=== PATIENT | male | born 1945 | race Caucasian/White ===

== ENCOUNTER 2017-12-02 10:59 | Inpatient (IN) | payer OTHER ==
[~2017-12-02] VITALS: Ht 188 cm; Wt 98.7 kg
[2017-12-02] VITALS (7 sets, daily range): BP systolic 149–153; BP diastolic 73–76; PULSE 65–69; TEMP 36.9–37.2; O2SAT 93–95; Ht 188 cm; Wt 98.7 kg
[2017-12-02] MEDS ORDERED: ALBUTEROL HFA 8 GM INHALER INH ONE (11:15)
--- NOTE | 2017-12-02 11:32 | DIAGNOSTIC IMAGING REPORT ---
CHEST ONE VIEW PORTABLE HISTORY: 72 years-old Male EVALUATE RESPIRATORY DISTRESS.DYSPNEA acute respiratory distress with possible pneumonia COMPARISON: None available TECHNIQUE: Portable AP view of the chest FINDINGS: Cardiomediastinal and hilar silhouettes are within normal limits. There is no pneumothorax or pleural effusion. Moderate right hemidiaphragmatic elevation with linear subsegmental bibasilar opacities. No overt pulmonary edema or lobar airspace consolidation identified. The bones of the chest appear grossly intact. IMPRESSION: 1. No acute process. 2. Right hemidiaphragmatic elevation with linear subsegmental bibasilar opacities suggesting atelectasis. The above report was generated using voice recognition software. It may contain grammatical, syntax or spelling errors. Electronically signed by: Ankush Mims M.D. 12/02/2017 11:31 AM Dictated Date/Time: 12/02/2017 11:28 AM
[2017-12-02 12:12] LABS: BASO % 0.2 %; BASO ABS # 0.02 K/uL (0-0.2); EOS % 0.9 %; EOS ABS # 0.08 K/uL (0-0.5); HEMATOCRIT 40.8 % (42-52); HEMOGLOBIN 14.4 g/dL (14.0-18.0); IG# 0.03 K/uL (0.00-0.02); LYMPH % 11.9 %; LYMPH ABS # 1.12 K/uL (1.2-3.4); MEAN CELL VOLUME 88.5 fL (80-100); MEAN CORPUSCULAR HEMOGLOBIN 31.2 pg (25-34); MEAN CORPUSCULAR HGB CONC 35.3 g/dl (32-36); MEAN PLATELET VOLUME 10.2 fL (7.4-10.4); MONO % 8.9 %; MONO ABS # 0.84 K/uL (0.11-0.59); NEUT % 77.8 %; PLATELET COUNT 161 K/uL (130-400); RED CELL DISTRIBUTION WIDTH CV 13.3 % (11.5-14.5); RED CELL DISTRIBUTION WIDTH SD 42.8 fL (36.4-46.3); WHITE BLOOD COUNT 9.39 K/uL (4.8-10.8)
[2017-12-02] MEDS ORDERED: SODIUM CHLORIDE 0.9% 1000ML 1,000 ML IV STA (12:15)
[2017-12-02] MEDS ORDERED: PIPERACILLIN/TAZOBACTAM 4.5 GM/100ML D5W IV STA (12:15)
[2017-12-02 12:37] LABS: ALBUMIN 3.6 gm/dl (3.4-5.0); CALCIUM 8.7 mg/dl (8.5-10.1); CREATININE 0.92 mg/dl (0.60-1.40); POTASSIUM 3.8 mmol/L (3.5-5.1)
[2017-12-02 13:24] LABS: INFLUENZA B ANTIGEN Neg for Influ B (NEG)
[2017-12-02] MEDS ORDERED: ACETAMINOPHEN 325 MG TAB PO SCH (13:45)
[2017-12-02] MEDS ORDERED: ALBUT/IPRATROP 3MG/0.5MG NEB 3 ML VIAL INH PRN (13:45)
--- NOTE | 2017-12-02 14:06 | History and Physical ---
History & Physical Date & Time of Service: Dec 02, 2017 at 13:16 Chief Complaint: Pneumonia Primary Care Physician: Hung Shepherd M.D. History of Present Illness Mr. Serna was in his pcp office today for cough when he had a syncopal episode witnessed by the staff. He does not remember losing consciousness though he does remember feeling dizzy, he was on the exam table so did not fall and felt better once laying back. Per his pcp office, patient became bradycardic during this episode. No chest pain or sob. He has had a cough since the weekend. No fevers, chills or muscle aches. His was ill with a URI last week and was given Augmentin, she was negative for flu at that time. No change in appetite. ROS Constitutional: no chills, aches, sweats or fever Respiratory: See HPI Cardiac: no chest pain, palpitations, edema, GI: no abdominal pain, nausea, vomiting, diarrhea or constipation : no dysuria or hesitancy Extremities: no joint pain or weakness Skin: no rash All other systems reviewed and negative Pmhx: chronic lower back pain Family History Mother of age at 96 Father of cerebral hemorrhage His three siblings are but he is not sure what medical history they had. Social History Smoking Status: Current Every Day Smoker (daily pipe ) Smokeless Tobacco Use: No Alcohol Use: beer a day Marital Status: Housing status: lives with significant other Occupational Status: retired (retail) Immunizations History of Influenza Vaccine: No History of Pneumococcal: No Allergies Coded Allergies: No Known Allergies (Unverified , 12/02/17) Home Medications No Active Prescriptions or Reported Meds Physical Exam Vital Signs Date Time Temp Pulse Resp B/P (MAP) Pulse Ox O2 Delivery O2 Flow Rate FiO2 12/02/17 12:26 63 15 145/67 95 Room Air 12/02/17 11:36 94 Room Air 12/02/17 11:30 76 12/02/17 11:02 36.9 74 20 144/72 95 Room Air General: no distress Eyes: normal inspection, PERLL Respiratory: chest non tender, left base course with expiratory wheezing, other moffett diminished, no respiratory distress, no accessory muscle use Cardiac: regular rate and rhythm, no rub or gallop, no murmur, no edema, no jvd GI/: active bowel sounds, no abd pain or tenderness, soft, non distended Extremities: normal range of motion, normal strength, non tender Neuro/Psych: alert and oriented x 3, normal mood and affect Skin: normal color, dry Diagnostics Laboratory Results Results Past 24 Hours Test 12/02/17 11:25 12/02/17 11:46 12/02/17 11:47 Range/Units White Blood Count 9.39 4.8-10.8 K/uL Red Blood Count 4.61 4.7-6.1 M/uL Hemoglobin 14.4 14.0-18.0 g/dL Hematocrit 40.8 42-52 % Mean Corpuscular Volume 88.5 80-100 fL Mean Corpuscular Hemoglobin 31.2 25-34 pg Mean Corpuscular Hemoglobin Concent 35.3 32-36 g/dl Platelet Count 161 130-400 K/uL Mean Platelet Volume 10.2 7.4-10.4 fL Neutrophils (%) (Auto) 77.8 % Lymphocytes (%) (Auto) 11.9 % Monocytes (%) (Auto) 8.9 % Eosinophils (%) (Auto) 0.9 % Basophils (%) (Auto) 0.2 % Neutrophils # (Auto) 7.30 1.4-6.5 K/uL Lymphocytes # (Auto) 1.12 1.2-3.4 K/uL Monocytes # (Auto) 0.84 0.11-0.59 K/uL Eosinophils # (Auto) 0.08 0-0.5 K/uL Basophils # (Auto) 0.02 0-0.2 K/uL RDW Standard Deviation 42.8 36.4-46.3 fL RDW Coefficient of Variation 13.3 11.5-14.5 % Immature Granulocyte % (Auto) 0.3 % Immature Granulocyte # (Auto) 0.03 0.00-0.02 K/uL Sodium Level 130 136-145 mmol/L Potassium Level 3.8 3.5-5.1 mmol/L Chloride Level 96 98-107 mmol/L Carbon Dioxide Level 25 21-32 mmol/L Anion Gap 9.0 3-11 mmol/L Blood Urea Nitrogen 12 7-18 mg/dl Creatinine 0.92 0.60-1.40 mg/dl Est Creatinine Clear Calc Drug Dose 93.1 ml/min Estimated GFR () 96.6 Estimated GFR (Non- 83.4 BUN/Creatinine Ratio 12.9 10-20 Random Glucose 143 70-99 mg/dl Calcium Level 8.7 8.5-10.1 mg/dl Total Bilirubin 0.8 0.2-1 mg/dl Aspartate Amino Transf (AST/SGOT) 19 15-37 U/L Alanine Aminotransferase (ALT/SGPT) 27 12-78 U/L Alkaline Phosphatase 66 45-117 U/L Total Protein 7.0 6.4-8.2 gm/dl Albumin 3.6 3.4-5.0 gm/dl Globulin 3.4 2.5-4.0 gm/dl Albumin/Globulin Ratio 1.1 0.9-2 Bedside Troponin I 0.050 0-0.045 ng/ml Bedside Lactic Acid Venous 2.21 0.90-1.70 mmol/L Microbiology Results 12/02/17 Blood Culture, Received Pending 12/02/17 Blood Culture, Received Pending Diagnostic Radiology CHEST ONE VIEW PORTABLE HISTORY: 72 years-old Male EVALUATE RESPIRATORY DISTRESS.DYSPNEA acute respiratory distress with possible pneumonia COMPARISON: None available TECHNIQUE: Portable AP view of the chest FINDINGS: Cardiomediastinal and hilar silhouettes are within normal limits. There is no pneumothorax or pleural effusion. Moderate right hemidiaphragmatic elevation with linear subsegmental bibasilar opacities. No overt pulmonary edema or lobar airspace consolidation identified. The bones of the chest appear grossly intact. IMPRESSION: 1. No acute process. 2. Right hemidiaphragmatic elevation with linear subsegmental bibasilar opacities suggesting atelectasis. Impression Assessment and Plan Mr. Serna is a 72 year old man here for pneumonia and syncope Community Acquired Pneumonia/syncope/symptomatic bradycardia - admit tele - blood cultures pending - Patient's lactic acid was 2.2 - NSS @ 150 ml/hr - IV Doxy and Rocephin - CXR did not show pneumonia however his clinical presentation is consistent with pneumonia, repeat cxr am - Echo - Initial troponin 0.05 - continue to trend - Rapid influenza negative - pcr pending - prn nebs - EKG with chest pain - Patient was bradycardic in his pcp office though he has not been bradycardic since arrival to ED - consult cardiology Hyponatremia - Na 130 - NSS as above - recheck prp in am Chronic back pain - prn acetaminophen DNR DVT proph - enoxaprin, SCDs I personally interviewed and examined the patient. I agree with history of present illness and physical exam mentioned above, I also performed my own history taking and examination. Past medical history and review of system has been obtained by myself I reviewed all pertinent labs and studies Reviewed current medications I discussed and formulated of the assessment and plan mentioned above. Please refer to the Summary mentioned below. 72 years old man who had 5 days history of shortness of breath and mild cough, presented to his primary care physician today for evaluation. Patient suddenly while he is there developed presyncope and was found to have bradycardia, exact pulse rate is unknown at this point but they laid him down on bed and it is unclear if he passed out or not but he was told that he was out for a very brief. This time., At this time his symptoms for upper respiratory tract could be early pneumonia as his chest x-ray was negative but he was dehydrated upon arrival. His presyncope could be symptomatic bradycardia versus vasovagal attack. Admit patient for IV antibiotics, repeat chest x-ray in a.m., consult senior medical writer for symptomatic bradycardia. Order 2D echo. General Appearance: not in acute distress Eyes: normal Sclerae, extraocular muscle intact ENT: hearing grossly normal Neck: supple Respiratory/Chest: Decreased air entry bilateral , mild respiratory distress, bilateral scattered rhonchi no accessory muscle use Cardiovascular: regular rate, rhythm, no murmur Abdomen: non tender, soft, no masses Extremities: no edema Neurologic/Psychiatric: Awake alert oriented times place and person moves all extremities sensation intact cranial nerves II-12 appear to be intact Skin: normal color, warm/dry, no rash Dara Cook MD, [facility] Advanced Directives Existing Advance Directive: No Existing Living Will: Yes Existing Power of Circuit Rider: No Existing Health Care Proxy: No Resuscitation Status DNR VTE Prophylaxis Will order VTE Prophylaxis: Yes Social Service Consult None Apply
--- NOTE | 2017-12-02 16:16 | ECHOCARDIOGRAM REPORT ---
*NOTICE TO RECEIVING [employer] This information is strictly Confidential and protected under [place] law. [place] law prohibits you from making any further disclosure of this information unless further disclosure is expressly permitted by the written consent of the person to whom it pertains or is authorized by law. A general authorization for the release of medical or other information is not sufficient for this purpose. Hospital accepts no responsibility if the information is made available to any other person, INCLUDING THE PATIENT. Interpretation Summary * Name: ALLIE CELESTE Study Date: 12/02/2017 02:32 PM BP: 167/80 mmHg * Patient Location: [facility] HR: 69 * : 1945 (M/d/yyyy) Gender: Male Height: 74 in * Age: 72 yrs Ethnicity: [place] Weight: 220 lb * Ordering Physician: Elham Veronica * Referring Physician: Self, Referred * Performed By: Murphy Ervin RCS * * Reason For Study: Syncope * BSA: 2.3 m2 * -- Conclusions -- * Left ventricular systolic function is normal. * Mild aortic regurgitation. * Mild valvular aortic stenosis. * Right ventricular systolic pressure is elevated at 30-40mmHg. * Borderline aortic root dilatation. Procedure Details * A complete two-dimensional transthoracic echocardiogram was performed (2D, M-mode, Doppler and color flow Doppler). Left Ventricle * The left ventricle is normal in size. * There is normal left ventricular wall thickness. * Ejection Fraction = 60-65%. * Left ventricular systolic function is normal. * The left ventricular wall motion is normal. Right Ventricle * The right ventricle is normal in size and function. * The right ventricular systolic function is normal as assessed by tricuspid annular plane systolic excursion (TAPSE) (normal >1.5 cm). Atria * The left atrial size is normal. * Right atrial size is normal. Mitral Valve * The mitral valve leaflets appear normal. There is no evidence of stenosis, fluttering, or prolapse. * There is trace mitral regurgitation. Tricuspid Valve * The tricuspid valve is not well visualized, but is grossly normal. * There is mild tricuspid regurgitation. * Right ventricular systolic pressure is elevated at 30-40mmHg. Aortic Valve * The aortic valve is trileaflet. * Mild valvular aortic stenosis. * Mild aortic regurgitation. Great Vessels * Borderline aortic root dilatation. Pericardium/Pleural * There is no pericardial effusion. Great Vessels * Normal inferior vena cava diameter and respiratory variation suggests normal central venous pressure. MMode 2D Measurements and Calculations IVSd 1.1 cm IVSs 1.4 cm LVIDd 5.2 cm LVIDs 3.5 cm LVPWd 1.1 cm LVPWs 1.6 cm IVS/LVPW 0.98 FS 32.6 % EDV(Teich) 130.9 ml ESV(Teich) 51.7 ml EF(Teich) 60.5 % EDV(cubed) 142.6 ml ESV(cubed) 43.7 ml EF(cubed) 69.3 % % IVS thick 28.0 % % LVPW thick 42.8 % LV mass(C)d 224.7 grams LV mass(C)dI 99.3 grams/m\S\2 LV mass(C)s 195.3 grams LV mass(C)sI 86.3 grams/m\S\2 SV(Teich) 79.2 ml SI(Teich) 35.0 ml/m\S\2 SV(cubed) 98.9 ml SI(cubed) 43.7 ml/m\S\2 Ao root diam 4.0 cm Ao root area 12.5 cm\S\2 LA dimension 3.9 cm asc Aorta Diam 3.7 cm LA/Ao 0.98 LVOT diam 2.2 cm LVOT area 3.8 cm\S\2 EDV(MOD-sp4) 75.9 ml ESV(MOD-sp4) 26.9 ml EF(MOD-sp4) 64.5 % EDV(MOD-sp2) 85.0 ml ESV(MOD-sp2) 33.6 ml EF(MOD-sp2) 60.4 % SV(MOD-sp4) 48.9 ml SI(MOD-sp4) 21.6 ml/m\S\2 SV(MOD-sp2) 51.3 ml SI(MOD-sp2) 22.7 ml/m\S\2 Doppler Measurements and Calculations MV E max jace 45.8 cm/sec MV A max jace 55.5 cm/sec MV E/A 0.83 MV P1/2t max jace 49.6 cm/sec MV P1/2t 112.2 msec MVA(P1/2t) 2.0 cm\S\2 MV dec slope 129.5 cm/sec\S\2 MV dec time 0.56 sec Ao V2 max 309.5 cm/sec Ao max PG 38.3 mmHg Ao max PG (full) 35.3 mmHg Ao V2 mean 183.5 cm/sec Ao mean PG 16.8 mmHg Ao mean PG (full) 15.5 mmHg Ao V2 VTI 73.9 cm FEDE(I,A) 0.96 cm\S\2 FEDE(I,D) 0.96 cm\S\2 FEDE(V,A) 1.1 cm\S\2 FEDE(V,D) 1.1 cm\S\2 LV V1 max PG 3.0 mmHg LV V1 mean PG 1.3 mmHg LV V1 max 86.8 cm/sec LV V1 mean 51.0 cm/sec LV V1 VTI 18.7 cm SV(Ao) 924.7 ml SI(Ao) 408.6 ml/m\S\2 SV(LVOT) 71.0 ml SI(LVOT) 31.4 ml/m\S\2 PA V2 max 80.3 cm/sec PA max PG 2.6 mmHg TR max jace 265.6 cm/sec
[2017-12-02] MEDS: SODIUM CHLORIDE 0.9% 1000ML 1,000 ML IV SCH (16:25)
[2017-12-02] MEDS: CEFTRIAXONE SOD INJ 1 GM in DEXTROSE 5% ADD-VANTAGE 50ML 50 ML IV SCH (16:25)
[2017-12-02 16:41] LABS: PTT PATIENT 25.4 SECONDS (21.0-31.0)
--- NOTE | 2017-12-02 16:59 | Cardiology Consultation ---
Cardiology Consultation Date of Consultation: Dec 02, 2017. Requesting Physician: Glenys Reason for Consultation: Syncope Pt evaluation today including: conversation w/ patient, physical exam, chart review, lab review, review of studies, conversation w/ oracle security consultant, review of inpatient medication list History of Present Illness Patient is a 72-year-old gentleman without a significant cardiac history who presented to his primary care physician's office earlier today for symptoms of an upper respiratory infection. Patient had developed a nonproductive cough and some congestion over the previous 24 hours. In the doctor's office the patient recalls feeling somewhat hot and diaphoretic as well as dizzy. He was in a seated position at this time. He was ease to a supine position and claims to have maintain consciousness throughout this episode. The report from the doctor's office suggests that he was unconscious for brief period of time and did suffer from some bradycardia. Patient states that he felt better in a rapid fashion. By the time he presented to [facility] he was feeling well. His main concern continues to be a durable cough which is perhaps worse when lying in a supine position. At rest he has not report significant breathing difficulty. He has not had any symptoms of chest discomfort or chest pressure. In general he is an active individual was accustomed to routine work such as shoveling snow in mowing his yard. He denies symptoms of limiting dyspnea or chest discomfort associated with these activities. In general he does not have dizziness or lightheadedness. He has not experienced orthostatic hypotension. He does not recall ever suffering a syncopal episode. He also does not recall any symptoms of palpitations or rapid heartbeats. Past Medical/Surgical History Arthritis Past surgical history Clark tooth removal Family History Noncontributory given his advanced age Social History Smoking Status: Current Every Day Smoker History of Alcohol Use: Yes (1 beer a day) Patient was previously employed in the retail industry for 50 years. Currently lives independently with his Review of Systems Per HPI. No recent fevers or chills. No abdominal complaints. No lower extremity edema. All Other Systems: Reviewed and Negative Allergies Coded Allergies: No Known Allergies (Unverified , 12/02/17) Medications Current Inpatient Medications Medications (Trade) Dose Ordered Sig/Phillip Route Start Time Stop Time Status Last Admin Dose Admin Enoxaparin Sodium (Lovenox Inj) 40 mg Q24H SC 12/02/17 13:45 01/01/18 13:44 UNV Sodium Chloride 1,000 ml @ 150 mls/hr Q6H40M IV 12/02/17 16:00 01/01/18 15:59 12/02/17 16:25 150 MLS/HR Albuterol/ Ipratropium (Duoneb) 3 ml Q4R PRN INH 12/02/17 13:45 01/01/18 13:44 Doxycycline Hyclate 100 mg/ Dextrose 110 ml @ 50 mls/hr Q12H IV 12/02/17 18:00 12/09/17 17:59 Ceftriaxone Sodium 1 gm/ Dextrose 50 ml @ 100 mls/hr Q24H IV 12/02/17 16:00 12/09/17 15:59 12/02/17 16:25 100 MLS/HR Acetaminophen (Tylenol Tab) 650 mg Q4H PRN PO 12/02/17 17:45 01/01/18 13:44 Physical Exam Vital Signs Past 12 Hours Date Time Temp Pulse Resp B/P (MAP) Pulse Ox O2 Delivery O2 Flow Rate FiO2 12/02/17 15:52 37.2 69 16 153/76 (101) 94 Room Air 12/02/17 14:32 69 16 167/80 95 12/02/17 14:18 69 16 167/80 95 Room Air 12/02/17 14:10 95 Room Air 12/02/17 12:26 63 15 145/67 95 Room Air 12/02/17 11:36 94 Room Air 12/02/17 11:30 76 12/02/17 11:02 36.9 74 20 144/72 95 Room Air The patient is alert and oriented. Mood and affect appeared normal. He answered all questions appropriately. HEENT: Pupils are equal and reactive to light and accommodation. Extraocular movements are intact. The sclerae are anicteric. Neuro: Cranial nerves intact Neck: Patient's neck is supple. He has palpable carotid pulses bilaterally without bruits on auscultation. There is no evidence of jugular venous distention. The thyroid is not enlarged. Lungs: Some upper airway congestion. He has good air movement without use of accessory muscles. Some expiratory wheezing. Cardiac: Heart demonstrates a regular rate and rhythm with occasional ectopy. Normal S1 and S2. Systolic ejection murmur noted. Pulses: The patient has palpable radial pulses bilaterally that are equal in intensity Extremities: There was no evidence of hypoperfusion. There is no cyanosis or clubbing. There is no edema. Skin: I did not appreciate any rashes on examination today. Data Laboratory Results: Last 24 Hours Test 12/02/17 11:25 12/02/17 11:46 12/02/17 11:47 12/02/17 15:50 White Blood Count 9.39 K/uL Red Blood Count 4.61 M/uL Hemoglobin 14.4 g/dL Hematocrit 40.8 % Mean Corpuscular Volume 88.5 fL Mean Corpuscular Hemoglobin 31.2 pg Mean Corpuscular Hemoglobin Concent 35.3 g/dl Platelet Count 161 K/uL Mean Platelet Volume 10.2 fL Neutrophils (%) (Auto) 77.8 % Lymphocytes (%) (Auto) 11.9 % Monocytes (%) (Auto) 8.9 % Eosinophils (%) (Auto) 0.9 % Basophils (%) (Auto) 0.2 % Neutrophils # (Auto) 7.30 K/uL Lymphocytes # (Auto) 1.12 K/uL Monocytes # (Auto) 0.84 K/uL Eosinophils # (Auto) 0.08 K/uL Basophils # (Auto) 0.02 K/uL RDW Standard Deviation 42.8 fL RDW Coefficient of Variation 13.3 % Immature Granulocyte % (Auto) 0.3 % Immature Granulocyte # (Auto) 0.03 K/uL Prothrombin Time 10.0 SECONDS Prothromb Time International Ratio 1.0 Activated Partial Thromboplast Time 25.4 SECONDS Partial Thromboplastin Ratio 1.0 Sodium Level 130 mmol/L Potassium Level 3.8 mmol/L Chloride Level 96 mmol/L Carbon Dioxide Level 25 mmol/L Anion Gap 9.0 mmol/L Blood Urea Nitrogen 12 mg/dl Creatinine 0.92 mg/dl Est Creatinine Clear Calc Drug Dose 93.1 ml/min Estimated GFR () 96.6 Estimated GFR (Non- 83.4 BUN/Creatinine Ratio 12.9 Random Glucose 143 mg/dl Calcium Level 8.7 mg/dl Total Bilirubin 0.8 mg/dl Aspartate Amino Transf (AST/SGOT) 19 U/L Alanine Aminotransferase (ALT/SGPT) 27 U/L Alkaline Phosphatase 66 U/L Total Protein 7.0 gm/dl Albumin 3.6 gm/dl Globulin 3.4 gm/dl Albumin/Globulin Ratio 1.1 Influenza Type A Antigen Neg for Influ A Influenza Type B Antigen Neg for Influ B Bedside Troponin I 0.050 ng/ml Bedside Lactic Acid Venous 2.21 mmol/L Imaging: Chest x-ray demonstrated to have a diaphragm elevation but no acute pulmonary process other than suspected atelectasis EKG: Normal sinus rhythm with occasional atrial ectopy and likely aberrant conduction Telemetry reviewed: Normal sinus rhythm. No pauses or bradycardia Echocardiogram performed today revealed mild aortic regurgitation and stenosis. Preserved LV systolic function Assessment & Plan 1. Syncope: The patient claims to have maintain consciousness throughout this episode. He did have a prodrome consistent with high vagal tone to include nausea and diaphoresis. He was reported to have low heart rates however this has not been well documented in his record. Unfortunately, he was not on telemetry or monitored at that time. Generally speaking he feels well and does not have symptoms of dizziness or lightheadedness. He has never suffered a syncopal episode in the past. He has not had symptoms consistent with coronary artery disease, coronary insufficiency or angina. His echocardiogram is essentially normal with the exception of some very mild valvular heart disease. 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 I do not think this represents more sinister diagnosis. He does not appear to have significant conduction disease on his EKG. I think he is low risk for more malignant events. I think we simply monitor his rhythm overnight. 2. Elevated troponin: Just above the normal limit. I doubt that this was related to any ischemic event. He claims to perform strenuous activity quite frequently without symptoms of angina. 3. Valvular heart disease: Mild aortic insufficiency and stenosis. This can be monitored over time. 4. Aortic root dilation: Measured at 4 centimeters. Once again, this can be monitored over time.
--- NOTE | 2017-12-02 17:11 | EMERGENCY ROOM VISIT NOTE ---
History Report prepared by Pat: Ken Monteiro Under the Supervision of: Dr. Eddie De M.D. First contact with patient: 11:07 Chief Complaint: RESPIRATORY PROBLEMS Stated Complaint: PNEUMONIA History of Present Illness The patient is a 72 year old male who presents to the Emergency Room with complaints of a syncopal episode occurring just prior to arrival. The patient also complains of a cough (x5 days). He was seen by his primary care office after his cough began to produce a bloody mucous today. The patient passed out while being evaluated. He felt nauseous and diaphoretic during the event. He does not recall passing out, but his doctor told him that he became bradycardic and then lost consciousness. He notes that his pulse ox was 88% on room air at this time. The patient denies shortness of breath, loss of bladder continence, or fevers. He has no history of lung disease, MD, or syncope. Source of History: patient Onset: Just prior to arrival Position: other (global) Quality: other (syncope) Timing: other (episode) Associated Symptoms: + diaphoresis, + cough (x5 days), + nausea, No fevers, No SOB Note: Patient denies loss of bladder continence. Review of Systems See HPI for pertinent positives & negatives. A total of 10 systems reviewed and were otherwise negative. Past Medical & Surgical Medical Problems: (1) Pneumonia Patient has no known history of cardiac, or pulmonary disease. No history of syncope. Family History No pertinent family history stated. Social History Smoking Status: Current Every Day Smoker Marital Status: Current/Historical Medications No Active Prescriptions or Reported Meds Allergies Coded Allergies: No Known Allergies (Unverified , 12/02/17) Physical Exam Vital Signs Date Time Temp Pulse Resp B/P (MAP) Pulse Ox O2 Delivery O2 Flow Rate FiO2 12/02/17 12:26 63 15 145/67 95 Room Air 12/02/17 11:36 94 Room Air 12/02/17 11:30 76 12/02/17 11:02 36.9 74 20 144/72 95 Room Air Physical Exam GENERAL: Patient is in no acute distress. HEENT: No acute trauma, normocephalic atraumatic, mucous membranes moist, no nasal congestion, no scleral icterus. NECK: No stridor, no adenopathy, no meningismus, trachea is midline. LUNGS: Crackles heard on the left. Right side seems clear. No wheezing. Breath sound equal. HEART: Without murmurs gallops or rubs, regular rate and rhythm. ABDOMEN: Soft, nontender, bowel sounds positive, no hernias, no peritonitis. EXTREMITIES: No cyanosis or edema, full range of motion of all the joints without pain or difficulty, no signs for acute trauma. NEUROLOGIC: Oriented x 3, no acute motor or sensory deficits, no focal weakness. SKIN: No rash, no jaundice, no diaphoresis. Medical Decision & Procedures ER Provider Diagnostic Interpretation: Radiology results as stated below per my review and radiologist interpretation: CHEST ONE VIEW PORTABLE FINDINGS: Cardiomediastinal and hilar silhouettes are within normal limits. There is no pneumothorax or pleural effusion. Moderate right hemidiaphragmatic elevation with linear subsegmental bibasilar opacities. No overt pulmonary edema or lobar airspace consolidation identified. The bones of the chest appear grossly intact. IMPRESSION: 1. No acute process. 2. Right hemidiaphragmatic elevation with linear subsegmental bibasilar opacities suggesting atelectasis. The above report was generated using voice recognition software. It may contain grammatical, syntax or spelling errors. Electronically signed by: Ankush Mims M.D. 12/02/2017 11:31 AM Laboratory Results 12/02/17 11:25 Red Blood Count 4.61, Mean Corpuscular Volume 88.5, Mean Corpuscular Hemoglobin 31.2, Mean Corpuscular Hemoglobin Concent 35.3, Mean Platelet Volume 10.2, Neutrophils (%) (Auto) 77.8, Lymphocytes (%) (Auto) 11.9, Monocytes (%) (Auto) 8.9, Eosinophils (%) (Auto) 0.9, Basophils (%) (Auto) 0.2, Neutrophils # (Auto) 7.30, Lymphocytes # (Auto) 1.12, Monocytes # (Auto) 0.84, Eosinophils # (Auto) 0.08, Basophils # (Auto) 0.02 12/02/17 11:25 Test 12/02/17 11:25 12/02/17 11:46 12/02/17 11:47 White Blood Count 9.39 K/uL (4.8-10.8) Red Blood Count 4.61 M/uL (4.7-6.1) Hemoglobin 14.4 g/dL (14.0-18.0) Hematocrit 40.8 % (42-52) Mean Corpuscular Volume 88.5 fL (80-100) Mean Corpuscular Hemoglobin 31.2 pg (25-34) Mean Corpuscular Hemoglobin Concent 35.3 g/dl (32-36) Platelet Count 161 K/uL (130-400) Mean Platelet Volume 10.2 fL (7.4-10.4) Neutrophils (%) (Auto) 77.8 % Lymphocytes (%) (Auto) 11.9 % Monocytes (%) (Auto) 8.9 % Eosinophils (%) (Auto) 0.9 % Basophils (%) (Auto) 0.2 % Neutrophils # (Auto) 7.30 K/uL (1.4-6.5) Lymphocytes # (Auto) 1.12 K/uL (1.2-3.4) Monocytes # (Auto) 0.84 K/uL (0.11-0.59) Eosinophils # (Auto) 0.08 K/uL (0-0.5) Basophils # (Auto) 0.02 K/uL (0-0.2) RDW Standard Deviation 42.8 fL (36.4-46.3) RDW Coefficient of Variation 13.3 % (11.5-14.5) Immature Granulocyte % (Auto) 0.3 % Immature Granulocyte # (Auto) 0.03 K/uL (0.00-0.02) Prothrombin Time 10.0 SECONDS (9.0-12.0) Prothromb Time International Ratio 1.0 (0.9-1.1) Activated Partial Thromboplast Time 25.4 SECONDS (21.0-31.0) Partial Thromboplastin Ratio 1.0 Anion Gap 9.0 mmol/L (3-11) Est Creatinine Clear Calc Drug Dose 93.1 ml/min Estimated GFR () 96.6 Estimated GFR (Non- 83.4 BUN/Creatinine Ratio 12.9 (10-20) Calcium Level 8.7 mg/dl (8.5-10.1) Total Bilirubin 0.8 mg/dl (0.2-1) Aspartate Amino Transf (AST/SGOT) 19 U/L (15-37) Alanine Aminotransferase (ALT/SGPT) 27 U/L (12-78) Alkaline Phosphatase 66 U/L (45-117) Total Protein 7.0 gm/dl (6.4-8.2) Albumin 3.6 gm/dl (3.4-5.0) Globulin 3.4 gm/dl (2.5-4.0) Albumin/Globulin Ratio 1.1 (0.9-2) Influenza Type A Antigen Neg for Influ A (NEG) Influenza Type B Antigen Neg for Influ B (NEG) Bedside Troponin I 0.050 ng/ml (0-0.045) Bedside Lactic Acid Venous 2.21 mmol/L (0.90-1.70) Laboratory results reviewed by me. Medications Administered Medications (Trade) Dose Ordered Sig/Phillip Route Start Time Stop Time Status Last Admin Dose Admin Albuterol (Ventolin Hfa Inhaler) 3 puffs NOW ONCE INH 12/02/17 11:15 12/02/17 11:16 DC 12/02/17 12:00 3 PUFFS Sodium Chloride 1,000 ml @ 999 mls/hr Q1H1M STAT IV 12/02/17 12:15 12/02/17 13:15 DC 12/02/17 12:25 999 MLS/HR Piperacillin Sod/ Tazobactam Sod (Zosyn Iv) 4.5 gm NOW STAT IV 12/02/17 12:15 12/02/17 12:17 DC 12/02/17 12:25 4.5 GM ECG Per My Interpretation Indication: syncope Rate (beats per minute): 69 Rhythm: sinus rhythm Findings: PVC, ST depression (Lateral), other (T-wave flattening laterally. No ST elevation. ) ED Course 1107: The patient was evaluated in room C3. A complete history and physical exam was performed. 1115: Ordered Ventolin Hfa Inhaler 3 puffs INH. 1215: Ordered Zosyn 4.5 gm IV, Sodium Chloride 1000 ml @ 999 mls/hr IV. 1252: Upon reexamination the patient is resting comfortably. I discussed results and treatment plan with the patient. He verbalizes agreement and understanding. I spoke with Dr. Cain of the [facility]. We discussed the patient's results and findings. The patient will be evaluated by [facility] for further management. Medical Decision The patient is a 72 year old male who presents to the ED with complaints of a syncopal episode. Differential diagnoses considered include pneumonia, bronchitis, influenza, flu-like illness, dysrhythmia, vasovagal syncope, anemia , electrolyte imbalance and MD. There is no leukocytosis or concerning anemia. No significant electrolyte abnormally, kidney failure or hepatitis. Influenza testing was negative. Chest film does not show pneumonia or CHF. EKG shows a sinus rhythm with PVCs and some lateral ST change. Cardiac troponin was slightly elevated, this is concerning for cardiac injury or strain. Lactic acid was mildly elevated consistent with infection and/or dehydration. Blood cultures are pending. The patient received IV Zosyn as antibiotic coverage. He received albuterol via MDI. He received IV saline. The patient has no complaints at present. He did have a bradycardic event with near syncope or brief syncope in the outpatient office. He has had cough and congestion. He appears to have an acute bronchitis, possibly a flulike illness. Early pneumonia is a consideration. Given the syncope with the somewhat abnormal EKG, given the mild troponin elevation, a hospital stay was felt warranted. I spoke to the patient and disability case manager. The on-call hospitalist was consulted. Medication Reconcilliation Current Medication List: was personally reviewed by me Blood Pressure Screening Patient's blood pressure: Elevated blood pressure Blood pressure disposition: Elevated BP felt to be situational Consults Time Called: 1246 Consulting Physician: Dr. Payton Madrigal [facility] Returned Call: 1302 Discussed the patient's case. The patient will be evaluated for further management. Impression Primary Impression: Acute bronchitis Additional Impressions: Syncope Elevated troponin Scribe Attestation The scribe's documentation has been prepared under my direction and personally reviewed by me in its entirety. I confirm that the note above accurately reflects all work, treatment, procedures, and medical decision making performed by me. Departure Information Dispostion Being Evaluated By Hospitalist Prescriptions No Active Prescriptions or Reported Meds Referrals Hung Shepherd M.D. (PCP) Patient Instructions My [facility] Problem Qualifiers
[2017-12-02 17:25] LABS: INFLUENZA A PCR Neg for Influ A (NEG); INFLUENZA B PCR Neg for Influ B (NEG)
[2017-12-02] MEDS ORDERED: ACETAMINOPHEN 325 MG TAB PO PRN (17:45)
[2017-12-02] MEDS: DOXYCYCLINE IV 100 MG in DEXTROSE 5% 100ML 100 ML IV SCH (18:40)
[2017-12-02] MEDS: ENOXAPARIN 40 MG/0.4 ML SYR SC SCH (18:41)
[2017-12-03] VITALS (9 sets, daily range): BP systolic 131–164; BP diastolic 69–88; PULSE 59–83; TEMP 36.7–37.2; O2SAT 94–95
[2017-12-03] MEDS: SODIUM CHLORIDE 0.9% 1000ML 1,000 ML IV SCH ×4 (01:17→22:50)
[2017-12-03] MEDS: DOXYCYCLINE IV 100 MG in DEXTROSE 5% 100ML 100 ML IV SCH ×2 (06:05→17:14)
[2017-12-03 07:25] LABS: HEMATOCRIT 37.9 % (42-52); HEMOGLOBIN 13.4 g/dL (14.0-18.0); MEAN CELL VOLUME 88.1 fL (80-100); MEAN CORPUSCULAR HEMOGLOBIN 31.2 pg (25-34); MEAN CORPUSCULAR HGB CONC 35.4 g/dl (32-36); PLATELET COUNT 146 K/uL (130-400); RED CELL DISTRIBUTION WIDTH CV 13.3 % (11.5-14.5); RED CELL DISTRIBUTION WIDTH SD 42.8 fL (36.4-46.3); WHITE BLOOD COUNT 6.85 K/uL (4.8-10.8)
[2017-12-03 07:53] LABS: ALBUMIN 3.2 gm/dl (3.4-5.0); CREATININE 0.83 mg/dl (0.60-1.40)
[2017-12-03 07:56] LABS: TOTAL PROTEIN 6.5 gm/dl (6.4-8.2)
--- NOTE | 2017-12-03 10:24 | DIAGNOSTIC IMAGING REPORT ---
CHEST 2 VIEWS ROUTINE CLINICAL HISTORY: Pneumonia. COMPARISON STUDY: Chest radiograph December 02, 2017. FINDINGS: There is moderate elevation of the right hemidiaphragm. Lucencies projecting over the right hemidiaphragm likely reflects gas within bowel. Bibasilar opacities favor atelectasis. There is no evidence for pulmonary edema. Cardiomediastinal silhouette is normal. IMPRESSION: 1. Moderate elevation of the right hemidiaphragm. 2. Bibasilar opacities which favor atelectasis. Electronically signed by: Josh Matthews M.D. 12/03/2017 10:23 AM Dictated Date/Time: 12/03/2017 10:21 AM
--- NOTE | 2017-12-03 15:44 | Progress Note ---
Subjective Date of Service: Dec 03, 2017. Subjective Pt evaluation today including: conversation w/ patient, physical exam, chart review, lab review, review of studies, conversation w/ recruitment consultant, review of inpatient medication list has cough, with yellow sputum, has been up and walk, did not dizziness, denies chest pain or fever or chills Problem List Medical Problems: (1) Acute bronchitis Status: Acute (2) Elevated troponin Status: Acute (3) Syncope Status: Acute Review of Systems Constitutional: No fever, No chills, No sweats, No weight loss, No weakness, No fatigue, No problem reported Eyes: No worsening of vision, No eye pain, No redness, No discharge, No diplopia ENT: No hearing loss, No unusual epistaxis, No nasal symptoms, No sore throat, No tinnitus, No dental problems, No trouble swallowing Respiratory: + cough, No sputum, No wheezing, No shortness of breath, No dyspnea on exertion, No dyspnea at rest, No hemoptysis Cardiac: No chest pain, No orthopnea, No PND, No edema, No claudication, No palpitations Abdomen: No pain, No nausea, No vomiting, No diarrhea, No constipation Musculoskeletal: No joint pain, No muscle pain, No swelling, No calf pain Male : No dysuria, No urinary frequency, No incontinence, No nocturia more than once/night, No slowing stream, No hematuria Neurologic: No memory loss, No paralysis, No weakness, No numbness/tingling, No vertigo, No balance problems Psychiatric: No depression symptoms, No anhedonism, No anxiety, No insomnia, No substance abuse Heme: No abnormal bleeding/bruising, No clotting problems, No swollen lymph nodes, No night sweats Endo: No fatigue, No excessive thirst, No excessive urination Skin: No rash, No itch, No new/changing skin lesions, No color change, No bleeding Objective Vital Signs Date Time Temp Pulse Resp B/P (MAP) Pulse Ox O2 Delivery O2 Flow Rate FiO2 12/03/17 11:44 Room Air 12/03/17 11:09 36.7 83 18 131/69 (89) 95 12/03/17 08:00 Room Air 12/03/17 07:18 36.8 59 18 144/88 (106) 94 Room Air 12/03/17 04:00 Room Air 3/1/18 03:30 37.0 68 17 137/82 (100) 94 Room Air 12/02/17 23:59 94 Room Air 12/02/17 23:43 37.0 65 19 149/73 (98) 94 Room Air 12/02/17 20:22 36.9 67 20 152/74 (100) 93 Room Air 12/02/17 20:00 93 Room Air 12/02/17 16:00 94 Room Air 12/02/17 15:52 37.2 69 16 153/76 (101) 94 Room Air Physical Exam General Appearance: WD/WN, no apparent distress, + thin Eyes: normal inspection, PERRL, EOMI, sclerae normal ENT: normal ENT inspection, hearing grossly normal, pharynx normal Neck: supple, no adenopathy, thyroid normal, no JVD, no carotid bruits, trachea midline Respiratory/Chest: chest non-tender, normal breath sounds, no respiratory distress, no accessory muscle use, + decreased breath sounds Cardiovascular: regular rate, rhythm, no edema, no gallop, no JVD, no murmur Abdomen: normal bowel sounds, non tender, soft, no organomegaly, no pulsatile mass Extremities: normal range of motion, non-tender, normal inspection, no pedal edema, no calf tenderness, normal capillary refill, pelvis stable Neurologic/Psychiatric: gas station clerk II-XII nml as tested, no motor/sensory deficits, alert, normal mood/affect, oriented x 3 Skin: normal color, warm/dry, no rash Lymphatic: no adenopathy Laboratory Results Last 24 Hours Test 12/02/17 15:50 12/02/17 17:53 12/03/17 00:28 12/03/17 06:45 Influenza Type A (RT-PCR) Neg for Influ A Influenza Type B (RT-PCR) Neg for Influ B Troponin I < 0.015 ng/ml < 0.015 ng/ml White Blood Count 6.85 K/uL Red Blood Count 4.30 M/uL Hemoglobin 13.4 g/dL Hematocrit 37.9 % Mean Corpuscular Volume 88.1 fL Mean Corpuscular Hemoglobin 31.2 pg Mean Corpuscular Hemoglobin Concent 35.4 g/dl RDW Standard Deviation 42.8 fL RDW Coefficient of Variation 13.3 % Platelet Count 146 K/uL Mean Platelet Volume 10.0 fL Sodium Level 130 mmol/L Potassium Level 4.0 mmol/L Chloride Level 98 mmol/L Carbon Dioxide Level 26 mmol/L Anion Gap 6.0 mmol/L Blood Urea Nitrogen 8 mg/dl Creatinine 0.83 mg/dl Est Creatinine Clear Calc Drug Dose 94.9 ml/min Estimated GFR () 102.6 Estimated GFR (Non- 88.5 BUN/Creatinine Ratio 9.8 Random Glucose 113 mg/dl Calcium Level 8.0 mg/dl Magnesium Level 1.8 mg/dl Total Bilirubin 1.0 mg/dl Aspartate Amino Transf (AST/SGOT) 21 U/L Alanine Aminotransferase (ALT/SGPT) 27 U/L Alkaline Phosphatase 57 U/L Total Protein 6.5 gm/dl Albumin 3.2 gm/dl Globulin 3.3 gm/dl Albumin/Globulin Ratio 1.0 Assessment and Plan 72 year old man here for pneumonia and syncope Possible clinical pneumonia which is consistent with community Acquired Pneumonia: Stable/improved syncope/symptomatic bradycardia, normal bradycardia, echo evaluation was not remarkable, radiation monitor was normal, cardiology feel patient likely from vasovagal which caused syncope, low risk of severe disease going, and do not need outpatient Holter Hyponatremia sodium level at 130, will follow up, check TSH level, Continue telemetry, continue antibiotics, follow-up culture and sensitivities, continue monitor lab , check orthostatic blood pressure, increase activity, up and walk, DVT prophylaxis is covered Planning discharge tomorrow if continued doing good Continued [facility] stay due to: home environment unsafe for pt Discharge planning: home
[2017-12-03] MEDS: CEFTRIAXONE SOD INJ 1 GM in DEXTROSE 5% ADD-VANTAGE 50ML 50 ML IV SCH (15:49)
[2017-12-03] MEDS: ENOXAPARIN 40 MG/0.4 ML SYR SC SCH (17:15)
[2017-12-04 03:30] VITALS: BP 144/56; PULSE 57; TEMP 36.6; O2SAT 93
[2017-12-04] MEDS: SODIUM CHLORIDE 0.9% 1000ML 1,000 ML IV SCH (05:54)
[2017-12-04] MEDS: DOXYCYCLINE IV 100 MG in DEXTROSE 5% 100ML 100 ML IV SCH (06:20)
[2017-12-04 07:20] LABS: HEMATOCRIT 37.7 % (42-52); HEMOGLOBIN 12.9 g/dL (14.0-18.0); MEAN CELL VOLUME 88.9 fL (80-100); MEAN CORPUSCULAR HEMOGLOBIN 30.4 pg (25-34); MEAN CORPUSCULAR HGB CONC 34.2 g/dl (32-36); MEAN PLATELET VOLUME 10.2 fL (7.4-10.4); PLATELET COUNT 146 K/uL (130-400); RED CELL DISTRIBUTION WIDTH CV 13.2 % (11.5-14.5); RED CELL DISTRIBUTION WIDTH SD 42.9 fL (36.4-46.3); WHITE BLOOD COUNT 5.66 K/uL (4.8-10.8)
[2017-12-04 07:46] VITALS: BP 157/80; PULSE 74; TEMP 36.9; O2SAT 97
[2017-12-04 07:47] LABS: CALCIUM 8.4 mg/dl (8.5-10.1); CREATININE 0.75 mg/dl (0.60-1.40); POTASSIUM 4.3 mmol/L (3.5-5.1)
[2017-12-04 07:59] LABS: PHOSPHORUS 3.1 mg/dl (2.5-4.9)
[2017-12-04 11:24] VITALS: BP 139/74; PULSE 69; TEMP 37; O2SAT 96
[2017-12-04] MEDS ORDERED: DOXY1TAB6 PO (12:29)
--- NOTE | 2017-12-04 12:29 | Discharge Instructions ---
Discharge Instructions Date of Service Dec 04, 2017. Admission Reason for Admission: Pneumonia Discharge Discharge Diagnosis / Problem: clinical pneumonia Discharge Goals Goal(s): Decrease discomfort, Improve function, Increase independence, Improve disease control, Improve nutritional status, Learn about illness, Diagnostic testing, Therapeutic intervention, Prevent Disease Progression, Specific goals Activity Recommendations Activity Limitations: resume your previous activity . Instructions / Follow-Up Instructions / Follow-Up you have mild pneumonia , will treat you with antibiotics for 5 days more, Rx has sent to your pharmacy you had syncope, likely from vasovagal which caused syncope, research project manager saw you, no obvious cardiac events you was found have Aortic root dilation: Measured at 4 centimeters, you can follow up this with PCP, or research project manager your sodium level is low at 130, please follow up with PCP - you need to follow up with your primary care physician in 1 week, - take medication as instructed, never overdose or any misuse, or take with alcohol, because misuse of medicine may cause organ damage or , call your primary care physician if have questions of medicaitons. - call your primary care physician OR go to local emergency room if has any fever/chill, chest pain, shortness of breathing, nausea/vomiting/abdominal pain , facial droop/slurry speech/local weakness, or if has any questions. - fall precaution - diet as instructed - you need to follow up with your subspecialist if need Current Hospital Diet Patient's current hospital diet: AHA Diet (Heart Healthy) Discharge Diet Recommended Diet: AHA Diet (Heart Healthy) Pending Studies Studies pending at discharge: no Medical Emergencies . Who to Call and When: Medical Emergencies: If at any time you feel your situation is an emergency, please call 911 immediately. . Non-Emergent Contact Non-Emergency issues call your: Primary Care Provider . . "Provider Documentation" section prepared by Ryan Witt. .
[2017-12-04 12:31] VITALS: BP 139/74; PULSE 69; TEMP 37; O2SAT 96
--- NOTE | 2017-12-04 15:17 | Discharge Summary ---
Discharge Summary Date of Service Dec 04, 2017. Discharge Summary Admission Date: Dec 02, 2017 at 13:57 Discharge Date: Dec 04, 2017 Discharge Disposition: Home Principal Diagnosis: mild pneumonia Problems/Secondary Diagnoses: syncope, likely from vasovagal which caused syncope, Aortic root dilation: Measured at 4 centimeters, Hyponatremia Immunizations: Have You Had Influenza Vaccine: No History of Pneumococcal: No Procedures: No Consultations: Millwork Estimator Medication Reconciliation New Medications: Doxycycline Hyclate (Doxycycline Hyclate) 100 Mg Tab 1 TAB PO BID for 5 Days, #10 TAB Discharge Exam Doing well, walks, occasional cough, no chest pain, no hemoptysis, no sputum Review of Systems: Constitutional: No fever, No chills, No sweats, No weight loss, No weakness , No fatigue, No problem reported Eyes: No worsening of vision, No eye pain, No redness, No discharge, No diplopia, No problem reported ENT: No hearing loss, No unusual epistaxis, No nasal symptoms, No sore throat, No tinnitus, No dental problems, No trouble swallowing, No problem reported Respiratory: + cough, No sputum, No wheezing, No shortness of breath, No dyspnea on exertion, No dyspnea at rest, No hemoptysis, No problem reported Cardiovascular: No chest pain, No orthopnea, No PND, No edema, No claudication, No palpitations, No problem reported Abdomen: No pain, No nausea, No vomiting, No diarrhea, No constipation, No GI bleeding, No problem reported Musculoskeletal: No joint pain, No muscle pain, No swelling, No calf pain, No problem reported Genitourinary - Male: No hematuria, No dysuria, No urinary frequency, No urinary urgency, No urinary hesitancy, No urinary retention, No urinary incontinence, No penile discharge, No lesions, No impotence, No problem reported Neurologic: No memory loss, No paralysis, No weakness, No numbness/tingling , No vertigo, No balance problems, No problem reported Psychiatric: No depression symptoms, No anhedonism, No anxiety, No insomnia , No substance abuse, No problem reported Endocrine: No fatigue, No excessive thirst, No excessive urination, No problem reported Hematologic / Lymphatic: No abnormal bleeding/bruising, No clotting problems , No swollen lymph nodes, No night sweats, No problem reported Integumentary: No rash, No itch, No new/changing skin lesions, No color change, No bleeding, No problem reported Physical Exam: General Appearance: WD/WN, no apparent distress Eyes: normal inspection, PERRL ENT: normal ENT inspection, hearing grossly normal Neck: supple, no adenopathy Respiratory/Chest: chest non-tender, lungs clear, normal breath sounds, no respiratory distress, no accessory muscle use, + decreased breath sounds Cardiovascular: regular rate, rhythm, no edema, no gallop, no JVD Abdomen / GI: normal bowel sounds, non tender, soft, no organomegaly, no pulsatile mass Extremities: normal inspection, no calf tenderness, normal capillary refill , no pedal edema, normal range of motion Neurologic/Psychiatric: 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, no motor/sensory deficits , alert, normal mood/affect, normal reflexes, oriented x 3 Skin: normal color, warm/dry Hospital Course 72 year old man here for pneumonia and syncope Possible clinical pneumonia which is consistent with community Acquired Pneumonia: Continue stable/improved syncope/symptomatic bradycardia, normal bradycardia, echo evaluation was not remarkable, monitoring analyst was normal, cardiology feel patient likely from vasovagal which caused syncope, low risk of severe disease going, and do not need outpatient Holter Hyponatremia sodium level at 130 on admission, this morning was 131, check TSH level, which is normal Continue telemetry, continue antibiotics, follow-up culture and sensitivities has been negative so far, PCP follow-up the final results, continue monitor lab , check orthostatic blood pressure which was negative, increase activity, up and walk, no dizziness DVT prophylaxis is covered Planning discharge see below Instructions / Follow-Up you have mild pneumonia , will treat you with antibiotics for 5 days more, Rx has sent to your pharmacy you had syncope, likely from vasovagal which caused syncope, keno writer saw you, no obvious cardiac events you was found have Aortic root dilation: Measured at 4 centimeters, you can follow up this with PCP, or keno writer your sodium level is low at 130, please follow up with PCP - you need to follow up with your primary care physician in 1 week, - take medication as instructed, never overdose or any misuse, or take with alcohol, because misuse of medicine may cause organ damage or , call your primary care physician if have questions of medicaitons. - call your primary care physician OR go to local emergency room if has any fever/chill, chest pain, shortness of breathing, nausea/vomiting/abdominal pain , facial droop/slurry speech/local weakness, or if has any questions. - fall precaution - diet as instructed - you need to follow up with your subspecialist if need Total Time Spent: Greater than 30 minutes This includes examination of the patient, discharge planning, medication reconciliation, and communication with other providers. Discharge Instructions Please refer to the electronic Patient Visit Report (Discharge Instructions) for additional information. Additional Copies To Hung Shepherd M.D.
== END 2017-12-04 13:14 | disposition home or self-care (01) | DRG 194 ==
LOC: C.EDB 11:01 → C.2T 13:57 → ENRESERV 14:24
PROVIDERS: ADMIT Internal Medicine; ATTEND Hospitalist
DX: J18.9 Pneumonia, unspecified organism (principal); E87.1 Hypo-osmolality and hyponatremia; R55 Syncope and collapse; R00.1 Bradycardia, unspecified; I77.810 Thoracic aortic ectasia; G89.29 Other chronic pain; M54.5 Low back pain; F17.290 Nicotine dependence, other tobacco product, uncomplicated; Z66 Do not resuscitate; Z72.89 Other problems related to lifestyle